=== PATIENT | female | born 1960 | race Caucasian/White ===

== ENCOUNTER 2018-07-06 12:32 | Inpatient (IN) | payer BC ==
[~2018-07-06] VITALS: Ht 170.2 cm; Wt 80.1 kg
[2018-07-06] MEDS ORDERED: PROZAC20 MG PO (12:54)
[2018-07-06] MEDS ORDERED: GENVOYA (12:55)
[2018-07-06 13:30] LABS: BASOPHILS 0.4 % (0-2); EOSINOPHILS 2.1 % (0-7); HEMOGLOBIN 14.6 g/dL (12-16); IMMATURE GRANULOCYTES 0.1 % (0-5); LYMPHOCYTES 19.9 % (15-50); MCH 32.5 pg (26.0-34.0); MCV 95.8 fL (80.0-100.0); MEAN PLATELET VOLUME 9.9 fL (7.4-10.4); MONOCYTES 4.3 % (2-11); NEUTROPHILS 73.2 % (40-80); PLATELET COUNT 161 10x3/uL (130-400); RBC 4.49 10x6/uL (4.00-5.40); RDW 12.8 % (11.5-14.5); WBC 7.2 10x3/uL (4.8-10.8)
[2018-07-06 13:56] LABS: ALBUMIN 3.4 g/dL (3.4-5.0); ALKALINE PHOSPHATASE 87 U/L (46-116); ALT (SGPT) 28 U/L (10-68); BILIRUBIN - TOTAL 0.23 mg/dL (0.2-1.3); CALC OSMOLALITY 288 mosm/kg (275-300); CALCIUM 8.6 mg/dL (8.5-10.1); CARBON DIOXIDE 27.8 mmol/L (21.0-32.0); CHLORIDE - SERUM 108 mmol/L (98-107); CREATININE - SERUM 0.7 mg/dL (0.6-1.3); GLUCOSE 103 mg/dL (74-106); POTASSIUM - SERUM 4.1 mmol/L (3.5-5.1); PROTEIN - SERUM 6.9 g/dL (6.4-8.2); SODIUM 144 mmol/L (136-145); UREA NITROGEN 19 mg/dL (7-18); eGFR NON AFRICAN AMERICAN > 90 mL/min (90-120)
[2018-07-06 14:00] LABS: AMYLASE - SERUM 30 U/L (25-115); LIPASE 135 U/L (73-393); TROPONIN-I < 0.017 ng/mL (0.000-0.060)
[2018-07-06 14:12] LABS: APPEARANCE CLEAR (CLEAR); BILIRUBIN NEGATIVE (NEGATIVE); COLOR STRAW (YELLOW); GLUCOSE NEGATIVE (NEGATIVE); KETONE NEGATIVE (NEGATIVE); NITRITE NEGATIVE (NEGATIVE); PROTEIN NEGATIVE (NEGATIVE); SPECIFIC GRAVITY 1.015 (1.005-1.020); UROBILINOGEN NORMAL (NORMAL)
--- NOTE | 2018-07-06 14:53 | NUR ---
PT LEAVING THE ED VIA STRETCHER AT THIS TIME. TRANSPORTED VIA STRETCHER TO [facility]. NO SIGNS OF DISTRESS NOTED WHEN LEAVING.
--- NOTE | 2018-07-06 15:07 | NUR ---
PT BACK IN ED AT THIS TIME.
--- NOTE | 2018-07-06 16:31 | NUR ---
ROOM 2111 ASSIGNED AT 1607. ATTEMPTED TO CALL REPORT TO RECEIVING NURSE AT 1610. NURSE UNAVILABLE. WILL ATTEMPT AGAIN SHORTLY.
--- NOTE | 2018-07-06 16:39 | NUR ---
PRIOR TO LEAVING ED, PT OFFERED PRN TYLENOL AND PRN ZOFRAN, PT DECLINED.
[2018-07-06 17:28] VITALS: BP 167/77; Ht 170.2 cm; Wt 80.1 kg
--- NOTE | 2018-07-06 17:34 | NUR ---
ASSESSMENT COMPLETE PT AAOX4 PLEASANT MOOD RESP UNLABORED SKIN W/D COLOR WNL C/O LOWER RIGHT ABDOMINAL PAIN 05/20 PRESENTING BURNING AND ACHING WILL CONTINUE TO MONITOR
[2018-07-06 20:00] VITALS: BP 145/82
--- NOTE | 2018-07-06 21:00 | NUR ---
ROUNDS COMPLETED, VSS, AAOX4, NO S/S OF DISTRESS. IV NS INFUSING @125. NO S/S OF HIVE NOTED @ THIS TIME. PT DENIES ANY FURHTER NEEDS AT THIS TIME. WILL START NEXT DOSE OF METRONIDAZOLE @5385. WATER PROVIDER PER PT REQUEST. WILL CPOC. CL IN REACH, BED IN LOW.
[2018-07-07] VITALS: BP 150/77
[2018-07-07 04:00] VITALS: BP 161/76
[2018-07-07 04:42] LABS: BASOPHILS 0.4 % (0-2); EOSINOPHILS 4.4 % (0-7); HEMATOCRIT 38.8 % (36.0-48.0); IMMATURE GRANULOCYTES 0.3 % (0-5); LYMPHOCYTES 33.9 % (15-50); MCH 32.3 pg (26.0-34.0); MCHC 33.5 g/dL (31.0-37.0); MCV 96.3 fL (80.0-100.0); MONOCYTES 5.4 % (2-11); NEUTROPHILS 55.6 % (40-80); PLATELET COUNT 151 10x3/uL (130-400); RBC 4.03 10x6/uL (4.00-5.40); RDW 12.9 % (11.5-14.5); WBC 7.3 10x3/uL (4.8-10.8)
[2018-07-07 04:55] LABS: ALKALINE PHOSPHATASE 73 U/L (46-116); ALT (SGPT) 23 U/L (10-68); BILIRUBIN - TOTAL 0.34 mg/dL (0.2-1.3); CALC OSMOLALITY 287 mosm/kg (275-300); CALCIUM 8.1 mg/dL (8.5-10.1); CARBON DIOXIDE 25.9 mmol/L (21.0-32.0); CHLORIDE - SERUM 107 mmol/L (98-107); CREATININE - SERUM 0.7 mg/dL (0.6-1.3); GLUCOSE 94 mg/dL (74-106); POTASSIUM - SERUM 3.7 mmol/L (3.5-5.1); PROTEIN - SERUM 5.6 g/dL (6.4-8.2); SODIUM 144 mmol/L (136-145); UREA NITROGEN 15 mg/dL (7-18); eGFR NON AFRICAN AMERICAN > 90 mL/min (90-120)
[2018-07-07 08:08] VITALS: BP 168/84
--- NOTE | 2018-07-07 08:15 | NUR ---
PT RESTING IN BED, SHIFT ASSESSMENT PERFORMED. AM MEDICATIONS GIVEN ORDERED, DENIES ANY PAIN AT THIS TIME, WILL CONT TO FOLLOW POC
[2018-07-07 11:41] VITALS: BP 156/69
[2018-07-07] MEDS ORDERED: FLAGYL500 MG PO (14:35)
--- NOTE | 2018-07-07 16:33 | NUR ---
DISCHARGE INSTRUCTIONS REVIEWED WITH PT AND ALL QUESTIONS ANSWERED. PIV REMOVED WITH CATHETER TIP INTACT. ASSISTED PT TO FRONT OF HOSPITAL WHERE SHE LEFT WITH HER
--- NOTE | 2018-07-07 16:51 | MORECARE ---
CASE MANAGEMENT DISCHARGE SUMMARY PATIENT: TARA RUSSO UNIT: [id number] ADM DATE: 07/06/18 AGE: 58 : 58 SEX: F ROOM/BED: D.7781 AUTHOR: FERMIN,DOC PHYSICIAN: REFERRING PHYSICIAN: CONNOR ROD MD DATE OF SERVICE: 07/07/18 Discharge Plan Patient Name: TARA RUSSO Facility: [facility]:[place] : 1960 Planned Disposition: Home Anticipated Discharge Date: 07/07/18 Discharge Date: 07/07/2018 Expected LOS: 1 Initial Reviewer: [email or web address] Initial Review Date: 07/07/2018 Generated: 07/07/18 5:51 pm Comments DCP- Discharge Planning Updated by [email or web address]: Dani Kirk on 07/07/18 3:[address] Patient Name: TARA RUSSO Admission Status: ER Accout number: [id number] Admission Date: 07-06-2018 : 1960 Admission Diagnosis: Attending: CONNOR ROD Current LOS: 1 Anticipated DC Date: 07-07-2018 Planned Disposition: Home Primary Insurance: [employer] OUT OF STATE Discharge Planning Comments: CM MET WITH PT IN ROOM TO DISCUSS DISCHARGE PLANNING AND NEEDS. PT REPORTS LIVING AT HOME INDEPENDENTLY WITH HER SPOUSE. PT HAS NO MEDICAL EQUIPMENT AND NO OUTSIDE SERVICES ASSISTING IN THE HOME. CM DISCUSSED AVAILABILITY OF HOME HEALTH, REHAB SERVICES AND MEDICAL EQUIPMENT. PT DENIES DISCHARGE NEEDS, REPORTS HER SPOUSE WILL PICK HER UP FOR DISCHARGE HOME. BANK VAULT CLERK NURSE NOTIFIED. Plant Engineer: Dani Kirk DCPIA - Discharge Planning Initial Assessment Updated by [id number]: Dani Kirk on 07/07/18 4:47 pm * Is the patient Alert and Oriented? Yes * How many steps to enter\exit or inside your home? * [facility] [place] * [facility] * Preadmission Environment Home with Family * ADLs Independent * Equipment None * Other Equipment NO MEDICAL EQUIPMENT PROVIDER PREFERENCE * List name and contact numbers for known caregivers / representatives who currently or will assist patient after discharge: NEVILLE RUSSO, SPOUSE, * Verbal permission to speak to the caregivers and representatives has been obtained from the patient. N/A * Community resources currently utilized None * Please name any agencies selected above. NONE * Additional services required to return to the preadmission environment? No * Can the patient safely return to the preadmission environment? Yes * Has this patient been hospitalized within the prior 30 days at any hospital? No Patient Name: TARA RUSSO Page [id number] at 1651 All edits/amendments must be made on the electronic document DICTATION DATE: 07/07/181650 CAREER PLACEMENT SERVICES COUNSELOR: RADAMES 07/07/181650 RPT#: [id number] DC DATE:07/07/18 STATUS: DIS IN [facility] [address] [place] [address] END OF REPORT
== END 2018-07-07 16:36 | disposition home or self-care (01) | DRG 392 ==
LOC: D.ER 12:32 → D.M2 15:58 → D.EDHOLD 15:58 → D.M2 16:11
PROVIDERS: Family Medicine; ADMIT Family Medicine; ATTEND Family Medicine
DX: K57.92 Diverticulitis of intestine, part unspecified, without perforation or abscess without bleeding (principal); I10 Essential (primary) hypertension; Z21 Asymptomatic human immunodeficiency virus [HIV] infection status; Z86.73 Personal history of transient ischemic attack (TIA), and cerebral infarction without residual deficits

== ENCOUNTER → 2018-07-29 14:13 | Outpatient (CLI) | payer BC ==
[2018-07-06 17:28] VITALS: BMI 26.7
[~2018-07-29 14:13] MED LIST: FLAGYL500 MG PO; GENVOYA; PROZAC20 MG PO
[2018-07-31 12:11] LABS: HIV-1 RNA BY PCR <20 (())
== END | disposition home or self-care (01) ==
LOC: D.LAB 14:13
PROVIDERS: ATTEND Student in an Organized Health Care Education/Training Program
DX: B20 Human immunodeficiency virus [HIV] disease (principal)

== ENCOUNTER 2019-04-02 12:55 | Inpatient (IN) | payer BC ==
[2019-04-02] VITALS (8 sets, daily range): BP systolic 128–154; BP diastolic 62–74; BMI 27.4
[~2019-04-02] VITALS: Ht 170.2 cm; Wt 79.4 kg
[~2019-04-02 12:55] MED LIST changes: -GENVOYA; +GENVOYA PO
[2019-04-02] MEDS ORDERED: KLONOPIN0.5 MG PO (13:04)
[2019-04-02 13:30] LABS: BASOPHILS 0.3 % (0-2); EOSINOPHILS 1.6 % (0-7); HEMATOCRIT 43.9 % (36.0-48.0); HEMOGLOBIN 14.6 g/dL (12-16); IMMATURE GRANULOCYTES 0.1 % (0-5); LYMPHOCYTES 26.7 % (15-50); MCH 32.4 pg (26.0-34.0); MCHC 33.3 g/dL (31.0-37.0); MCV 97.6 fL (80.0-100.0); MONOCYTES 5.5 % (2-11); NEUTROPHILS 65.8 % (40-80); RDW 12.2 % (11.5-14.5); WBC 7.9 10x3/uL (4.8-10.8)
[2019-04-02 13:31] LABS: PLATELET COUNT 237 10x3/uL (130-400)
[2019-04-02 13:39] LABS: APTT 25.3 SECONDS (22.8-39.4); INR 0.98 (0.85-1.17); PROTIME 12.9 SECONDS (11.6-15.0)
[2019-04-02 13:40] LABS: CALC OSMOLALITY 288 mosm/kg (275-300); CARBON DIOXIDE 31.5 mmol/L (21.0-32.0); CHLORIDE - SERUM 108 mmol/L (98-107); CREATININE - SERUM 0.8 mg/dL (0.6-1.3); GLUCOSE 103 mg/dL (74-106); POTASSIUM - SERUM 3.6 mmol/L (3.5-5.1); SODIUM 145 mmol/L (136-145); UREA NITROGEN 12 mg/dL (7-18); eGFR NON AFRICAN AMERICAN 78 mL/min (90-120)
[2019-04-02 13:58] LABS: ALBUMIN 3.3 g/dL (3.4-5.0); ALKALINE PHOSPHATASE 84 U/L (30-120); ALT (SGPT) 32 U/L (10-68); BILIRUBIN - TOTAL 0.45 mg/dL (0.2-1.3); CKMB 0.7 U/L (0.0-3.6); CREATINE KINASE 34 UL (21-215); PRO BNP 233 pg/mL (0-125); PROTEIN - SERUM 7.3 g/dL (6.4-8.2)
[2019-04-02 14:02] LABS: TROPONIN-I < 0.017 ng/mL (0.000-0.060)
--- NOTE | 2019-04-02 14:55 | NUR ---
FLU SWAB PERFORMED AND SENT TO LAB. PT RESTING IN POSITION OF COMFORT, NO ACUTE DISTRESS NOTED. FAMILY AT BEDSIDE. WILL CONTINUE TO MONITOR.
--- NOTE | 2019-04-02 15:49 | NUR ---
PT GIVEN ICE WATER PER REQUEST.
--- NOTE | 2019-04-02 19:20 | NUR ---
PT GIVEN SANDWICH AND ICE WATER, DENIES ANY FURTHER NEEDS AT THIS TIME. WILL CONTINUE TO MONITOR.
--- NOTE | 2019-04-02 19:30 | NUR ---
PT'S IV ROCEPHIN FINISHED AT THIS TIME.
[2019-04-02] MEDS ORDERED: MELATONIN10 M1 PO (22:08)
[2019-04-03 04:00] VITALS: BP 142/76
[2019-04-03 07:23] LABS: BASOPHILS 0 % (0-2); EOSINOPHILS 0 % (0-7); HEMATOCRIT 40.5 % (36.0-48.0); HEMOGLOBIN 13.1 g/dL (12-16); IMMATURE GRANULOCYTES 0.2 % (0-5); LYMPHOCYTES 13.9 % (15-50); MCH 31.4 pg (26.0-34.0); MCHC 32.3 g/dL (31.0-37.0); MCV 97.1 fL (80.0-100.0); MEAN PLATELET VOLUME 9.9 fL (7.4-10.4); NEUTROPHILS 84.9 % (40-80); PLATELET COUNT 234 10x3/uL (130-400); RBC 4.17 10x6/uL (4.00-5.40); WBC 6.1 10x3/uL (4.8-10.8)
[2019-04-03 07:46] LABS: ALBUMIN 2.9 g/dL (3.4-5.0); ALKALINE PHOSPHATASE 80 U/L (30-120); ALT (SGPT) 25 U/L (10-68); BILIRUBIN - TOTAL 0.26 mg/dL (0.2-1.3); CALCIUM 8.6 mg/dL (8.5-10.1); CARBON DIOXIDE 28.3 mmol/L (21.0-32.0); CHLORIDE - SERUM 108 mmol/L (98-107); CREATININE - SERUM 0.6 mg/dL (0.6-1.3); POTASSIUM - SERUM 4.1 mmol/L (3.5-5.1); PROTEIN - SERUM 6.3 g/dL (6.4-8.2); SODIUM 143 mmol/L (136-145); UREA NITROGEN 14 mg/dL (7-18); eGFR NON AFRICAN AMERICAN > 90 mL/min (90-120)
[2019-04-03 07:50] LABS: CALC OSMOLALITY 289 mosm/kg (275-300); GLUCOSE 164 mg/dL (74-106)
--- NOTE | 2019-04-03 08:00 | NUR ---
ASSESSMENT PER FLOW SHEET. PT IS WITHOUT DISTRESS.CALL LIGHT IN REACH
[2019-04-03 08:28] VITALS: BP 171/81
[2019-04-03 10:51] VITALS: Ht 170.2 cm; Wt 79.4 kg
[2019-04-03 14:07] VITALS: BP 146/74
[2019-04-03 15:58] LABS: BILIRUBIN NEGATIVE (NEGATIVE); GLUCOSE 250 mg/dL (NEGATIVE); KETONE NEGATIVE (NEGATIVE); NITRITE NEGATIVE (NEGATIVE); UROBILINOGEN NORMAL (NORMAL)
[2019-04-03 16:19] VITALS: BP 149/67
--- NOTE | 2019-04-03 17:42 | NUR ---
REMAINS WITHOUT NEEDS,WITHOUT CHANGE.CONT PLAN OF CARE
[2019-04-03 23:31] VITALS: BP 145/51
[2019-04-04 03:48] VITALS: BP 136/61
[2019-04-04 04:00] VITALS: BP 132/62
[2019-04-04 06:53] LABS: BASOPHILS 0 % (0-2); EOSINOPHILS 0 % (0-7); HEMATOCRIT 36.9 % (36.0-48.0); HEMOGLOBIN 12.2 g/dL (12-16); IMMATURE GRANULOCYTES 0.2 % (0-5); LYMPHOCYTES 5.4 % (15-50); MCH 31.9 pg (26.0-34.0); MCHC 33.1 g/dL (31.0-37.0); MCV 96.6 fL (80.0-100.0); MEAN PLATELET VOLUME 10.1 fL (7.4-10.4); MONOCYTES 1.8 % (2-11); NEUTROPHILS 92.6 % (40-80); PLATELET COUNT 245 10x3/uL (130-400); RBC 3.82 10x6/uL (4.00-5.40); RDW 12.5 % (11.5-14.5)
[2019-04-04 07:03] LABS: WBC 13.5 10x3/uL (4.8-10.8)
[2019-04-04 07:11] LABS: CALC OSMOLALITY 290 mosm/kg (275-300); CALCIUM 8.5 mg/dL (8.5-10.1); CARBON DIOXIDE 28.9 mmol/L (21.0-32.0); CHLORIDE - SERUM 109 mmol/L (98-107); CREATININE - SERUM 0.6 mg/dL (0.6-1.3); GLUCOSE 173 mg/dL (74-106); POTASSIUM - SERUM 4.2 mmol/L (3.5-5.1); SODIUM 144 mmol/L (136-145); UREA NITROGEN 13 mg/dL (7-18); eGFR NON AFRICAN AMERICAN > 90 mL/min (90-120)
--- NOTE | 2019-04-04 09:00 | NUR ---
ASSESSMENT PER FLOW SHEET. PT IS WITHOUT DISTRESS.MONITOR FOR NEEDS
[2019-04-04 09:15] VITALS: BP 100/76
[2019-04-04 12:27] VITALS: BP 137/63
[2019-04-04] MEDS ORDERED: TESSALON PERLE100 MG PO (15:41)
[2019-04-04] MEDS ORDERED: MUCINEX600 MG PO (15:42)
[2019-04-04] MEDS ORDERED: LEVOFLOXACIN500 MG PO (15:43)
[2019-04-04] MEDS ORDERED: PREDNISONE10 MG PO (15:44)
[2019-04-04] MEDS ORDERED: SYMBICORT 16010.2 GM INH (15:48)
[2019-04-04] MEDS ORDERED: PROAIR HFA8.5 G1 INH (15:50)
--- NOTE | 2019-04-04 16:43 | MORECARE ---
CASE MANAGEMENT DISCHARGE SUMMARY PATIENT: TARA RUSSO UNIT: [id number] ADM DATE: 04/02/19 AGE: 58 : 58 SEX: F ROOM/BED: D.2216 AUTHOR: BEVERLEY CHRISTENSEN PHYSICIAN: REFERRING PHYSICIAN: PALAK ORTIZ MD DATE OF SERVICE: 04/04/19 Discharge Plan Patient Name: TARA RUSSO Facility: [facility]:[place] : 1960 Planned Disposition: Home Anticipated Discharge Date: Discharge Date: Expected LOS: Initial Reviewer: [email or web address] Initial Review Date: 04/04/2019 Generated: 04/04/19 5:43 pm Comments DCP- Discharge Planning Updated by [email or web address]: Radha Gurrola on 04/04/19 3:[address] Patient Name: TARA RUSSO Admission Status: ER Accout number: [id number] Admission Date: 04-02-2019 : 1960 Admission Diagnosis: Attending: PALAK ORTIZ Current LOS: 2 Anticipated DC Date: Planned Disposition: Home Primary Insurance: [employer] OUT OF STATE Discharge Planning Comments: CM MET WITH PATIENT TO DISCUSS DC PLANNING/NEEDS AFTER OBTAINING VERBAL CONSENT. PLANS TO DC TO HOME. DENIES NEEDS FOR EQUIPMENT, HOME HEALTH OR REHAB. CM TO FOLLOW AND ASSIST NEEDED. HERE AND WILL TRANSPORT HOME. Rn Registry: Radha Gurrola DCPIA - Discharge Planning Initial Assessment Updated by [email or web address]: Radha Gurrola on 04/04/19 4:37 pm * Is the patient Alert and Oriented? Yes * PCP [facility] * [facility] * Preadmission Environment Home with Family * ADLs Independent * Equipment None * Community resources currently utilized None * Additional services required to return to the preadmission environment? No * Can the patient safely return to the preadmission environment? Yes * Has this patient been hospitalized within the prior 30 days at any hospital? No Patient Name: TARA RUSSO Page [phone] at 1643 All edits/amendments must be made on the electronic document DICTATION DATE: 04/04/191642 NEGOTIATOR: RADAMES 04/04/193 RPT#: [id number] DC DATE: STATUS: ADM IN [address] [facility] [place] [address] END OF REPORT
--- NOTE | 2019-04-04 17:00 | NUR ---
IV DCD WITH CATH TIP INTACT. DISCHARGE INSTRUCTIONS,STATES UNDERSTANDING. GETTING DRESSED FOR DC HOME
--- NOTE | 2019-04-04 17:11 | NUR ---
LEFT UNIT VIA WHEELCHAIR FOR TRANSPORT HOME
--- NOTE | 2019-04-05 10:24 | MORECARE ---
CASE MANAGEMENT DISCHARGE SUMMARY PATIENT: TARA RUSSO UNIT: [id number] ADM DATE: 04/02/19 AGE: 58 : 58 SEX: F ROOM/BED: D.2216 AUTHOR: BEVERLEY CHRISTENSEN PHYSICIAN: REFERRING PHYSICIAN: PALAK ORTIZ MD DATE OF SERVICE: 04/05/19 Discharge Plan Patient Name: TARA RUSSO Facility: [facility]:[place] : 1960 Planned Disposition: Home Anticipated Discharge Date: Discharge Date: 04/04/2019 Expected LOS: 0 Initial Reviewer: [email or web address] Initial Review Date: 04/04/2019 Generated: 04/05/19 11:23 am Comments DCP- Discharge Planning Updated by [email or web address]: Radha Gurrola on 04/04/19 3:[address] Patient Name: TARA RUSSO Admission Status: ER Accout number: [id number] Admission Date: 04-02-2019 : 1960 Admission Diagnosis: Attending: PALAK ORTIZ Current LOS: 2 Anticipated DC Date: Planned Disposition: Home Primary Insurance: [employer] OUT OF STATE Discharge Planning Comments: CM MET WITH PATIENT TO DISCUSS DC PLANNING/NEEDS AFTER OBTAINING VERBAL CONSENT. PLANS TO DC TO HOME. DENIES NEEDS FOR EQUIPMENT, HOME HEALTH OR REHAB. CM TO FOLLOW AND ASSIST NEEDED. HERE AND WILL TRANSPORT HOME. Shrimp Trawler Captain: Radha Gurrola DCPIA - Discharge Planning Initial Assessment Updated by [email or web address]: Radha Gurrola on 04/04/19 4:37 pm * Is the patient Alert and Oriented? Yes * PCP [facility] * Pharmacy [facility] * Preadmission Environment Home with Family * ADLs Independent * Equipment None * Community resources currently utilized None * Additional services required to return to the preadmission environment? No * Can the patient safely return to the preadmission environment? Yes * Has this patient been hospitalized within the prior 30 days at any hospital? No Last DP export: 04/04/19 3:43 p Patient Name: TARA RUSSO Page [phone] at 1024 All edits/amendments must be made on the electronic document DICTATION DATE: 04/05/19 1023 PROSTHETIC AIDES TEACHER: RADAMES 04/05/19 1023 RPT#: [id number] DC DATE:04/04/19 STATUS: DIS IN [facility] [address] [place] [address] END OF REPORT
== END 2019-04-04 17:11 | disposition home or self-care (01) | DRG 189 ==
LOC: D.ER 12:55 → D.MS 18:11
PROVIDERS: Family Medicine; ADMIT Family Medicine; ATTEND Family Medicine
DX: J96.01 Acute respiratory failure with hypoxia (principal); J44.1 Chronic obstructive pulmonary disease with (acute) exacerbation; B20 Human immunodeficiency virus [HIV] disease; F17.203 Nicotine dependence unspecified, with withdrawal; I10 Essential (primary) hypertension; K21.9 Gastro-esophageal reflux disease without esophagitis

== ENCOUNTER 2019-06-17 14:46 | Emergency (ER) | payer BC ==
[~2019-06-17] VITALS: Ht 170.2 cm; Wt 79.5 kg
[~2019-06-17 14:46] MED LIST changes: +KLONOPIN0.5 MG PO; +LEVOFLOXACIN500 MG PO; +MELATONIN10 M1 PO; +MUCINEX600 MG PO; +PREDNISONE10 MG PO; +PROAIR HFA8.5 G1 INH; +SYMBICORT 16010.2 GM INH; +TESSALON PERLE100 MG PO
[2019-06-17 14:55] VITALS: Ht 170.2 cm; Wt 79.5 kg
[2019-06-17 17:59] LABS: BASOPHILS 0.3 % (0-2); EOSINOPHILS 0.3 % (0-7); HEMOGLOBIN 13.4 g/dL (12-16); IMMATURE GRANULOCYTES 0.1 % (0-5); MCH 32.3 pg (26.0-34.0); MCHC 31.9 g/dL (31.0-37.0); MCV 101.2 fL (80.0-100.0); MEAN PLATELET VOLUME 9.8 fL (7.4-10.4); MONOCYTES 4.9 % (2-11); NEUTROPHILS 70.4 % (40-80); PLATELET COUNT 208 10x3/uL (130-400); RBC 4.15 10x6/uL (4.00-5.40); RDW 13.2 % (11.5-14.5)
[2019-06-17 18:10] LABS: APTT 24.5 SECONDS (22.8-39.4); INR 0.91 (0.85-1.17); PROTIME 12.3 SECONDS (11.6-15.0)
[2019-06-17 18:12] LABS: ANION GAP 8.9 mmol/L (8-16); CALCIUM 9.2 mg/dL (8.5-10.1); CARBON DIOXIDE 30.5 mmol/L (21.0-32.0); POTASSIUM - SERUM 4.4 mmol/L (3.5-5.1)
[2019-06-17 18:17] LABS: BILIRUBIN - TOTAL 0.32 mg/dL (0.2-1.3); PROTEIN - SERUM 7.7 g/dL (6.4-8.2)
[2019-06-17] MEDS ORDERED: ULTRAM50 MG PO ×2 (18:25→18:29)
[2019-06-17 18:49] VITALS: BP 153/81
== END 2019-06-17 18:49 | disposition home or self-care (01) ==
LOC: D.ER 14:46
PROVIDERS: Family Medicine
DX: S52.021A Displaced fracture of olecranon process without intraarticular extension of right ulna, initial encounter for closed fracture (principal); S82.831A Other fracture of upper and lower end of right fibula, initial encounter for closed fracture; W11.XXXA Fall on and from ladder, initial encounter; Y93.9 Activity, unspecified; Y92.9 Unspecified place or not applicable; I10 Essential (primary) hypertension; K21.9 Gastro-esophageal reflux disease without esophagitis; Z72.0 Tobacco use; B20 Human immunodeficiency virus [HIV] disease